=== PATIENT | female | born 1955 | race Two or more races ===

== ENCOUNTER 2018-09-01 20:54 | Emergency (ER) | payer OTHER ==
[~2018-09-01] VITALS: Ht 165.1 cm; Wt 81.6 kg
[2018-09-01] MEDS ORDERED: VASOTEC20 M1 (21:16)
[2018-09-01] MEDS ORDERED: CARDIZEM LA240 MG (21:16)
[2018-09-01] MEDS ORDERED: GLIMEPIRIDE4 MG (21:18)
[2018-09-01] MEDS ORDERED: TOPROL XL50 M1 (21:18)
[2018-09-01] MEDS ORDERED: GLUCOPHAGE XR500 MG (21:18)
[2018-09-01] MEDS ORDERED: HYDROCHLOROTH12.5 M1 (21:19)
[2018-09-02] MEDS ORDERED: PLAVIX75 MG PO (06:31)
[2018-09-02] MEDS ORDERED: ASA81 MG PO (06:31)
== END 2018-09-02 06:57 | disposition home or self-care (01) ==
LOC: ER 20:54 → EDBD 20:56 → ER 09-02 06:57
DX: I69.398 Other sequelae of cerebral infarction (principal); I10 Essential (primary) hypertension; R53.1 Weakness; R20.0 Anesthesia of skin; I69.351 Hemiplegia and hemiparesis following cerebral infarction affecting right dominant side